=== PATIENT | male | born 1930 | race Caucasian/White ===

== ENCOUNTER → 2019-10-07 | Outpatient (CLI) | payer MEDICARE, BC ==
[2019-10-07 13:56] LABS: Basophils % (A) 1 %; Eosinophils # (A) 0.2 k/uL (0-0.7); Eosinophils % (A) 6 %; HCT 36.3 % (39.0-53.0); HGB 11.6 gm/dL (13.0-17.5); Lymphocytes # (A) 0.6 k/uL (1.0-4.8); Lymphocytes % (A) 16 %; MCH 28.5 pg (25.0-35.0); MCHC 31.9 g/dL (31.0-37.0); MCV 89.3 fL (80.0-100.0); Mean Platelet Volume 7.1; Monocytes # (A) 0.3 k/uL (0-1.0); Monocytes % (A) 6 %; Neutrophils # (A) 2.8 k/uL (1.3-7.7); Neutrophils % (A) 69 %; Platelet Count 144 k/uL (150-450); RBC 4.06 m/uL (4.30-5.90); RDW 14.2 % (11.5-15.5); WBC 4.1 k/uL (3.8-10.6)
[2019-10-07 14:01] LABS: Calcium 9.7 mg/dL (8.4-10.2); Potassium 4.7 mmol/L (3.5-5.1)
[2019-10-07 14:35] LABS: Appearance,Urine Turbid (Clear); Bilirubin,Urine Negative (Negative); Blood,Urine Large (Negative); Color,Urine Red; Glucose,Urine (UA) Negative (Negative); Ketones,Urine Negative (Negative); Leukocyte Esterase,Urine Moderate (Negative); Nitrite,Urine Negative (Negative); Protein,Urine 2+ (Negative); RBC,Urine >182 /hpf (0-5); Specific Gravity,Urine 1.017 (1.001-1.035); Urobilinogen,Urine <2.0 mg/dL (<2.0); WBC,Urine 161 /hpf (0-5)
--- NOTE | 2019-10-07 14:49 | XR ---
EXAMINATION TYPE: XR chest 2V DATE OF EXAM: 10/07/2019 COMPARISON: 09/22/2017 HISTORY: 88-year-old male presurgical evaluation, C67.9, Z01.818, R31.0, I10, R06.02 TECHNIQUE: AP and lateral views FINDINGS: Low lung volumes and cardiovascular markings. Heart size is accentuated from the low lung volumes, li joe upper limits of normal in size. Strandy bibasilar atelectasis. No consolidation or pleural effus ion. IMPRESSION: Hypoventilatory changes. No definite acute cardiopulmonary process.
== END | disposition home or self-care (01) ==
LOC: LABPAT 12:46
PROVIDERS: ATTEND Urology
DX: Z01.818 Encounter for other preprocedural examination (principal); R91.8 Other nonspecific abnormal finding of lung field; C67.9 Malignant neoplasm of bladder, unspecified; R31.0 Gross hematuria
CPT/HCPCS: 71046; 80048; 81001; 85025; 87086; 93005

== ENCOUNTER 2019-10-14 11:58 | Observation (INO) | payer MEDICARE, BC ==
[2019-10-06 15:45] VITALS: BMI 31.6
--- NOTE | 2019-10-07 18:21 | P.HPIHPCON ---
History of Present Illness Mr Obrien is 88 yo male with gross hematuria. He underwent a cystoscopy which showed a large bladder tumor involving the bladder and extending into the prostate. 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 I discussed the option of TURBT with him, I discussed with him the risk of bleeding, infection and bladder perforation. I also discussed risk from anesthesia with him. He understood all the risks and agreed to proceed with TURBT Consent for Procedure: I have explained the operation/procedure to the patient, including the risks, benefits, side effects, alternative therapies (including not receiving the proposed treatment or service), the likelihood of the patient achieving his/her goals, and potential recuperation problems for the procedure/sedation/analgesia, as well as any blood products, if indicated. I also explained to the patient the risks, benefits and side effects of the alternatives, as well as the risks related to not receiving the proposed procedure, care, treatment, or services. 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[place]), Prostate Disorder Last Myocardial Infarction Date:: 1974 History of Any Multi-Drug Resistant Organisms: None Reported Past Surgical History: Orthopedic Surgery Additional Past Surgical History / Comment(s): lt arm Past Anesthesia/Blood Transfusion Reactions: No Reported Reaction Smoking Status: Former smoker - Past Family History Mother Family Medical History: No Reported History Medications and Allergies Home Medications Medication Instructions Recorded Confirmed Type Aspirin [Adult Low Dose Aspirin EC] 81 mg PO DAILY 10/06/19 10/06/19 History Losartan/Hydrochlorothiazide 1 tab PO DAILY 10/06/19 10/06/19 History [Hyzaar 100-25 Tablet] Meloxicam 15 mg PO DAILY 10/06/19 10/06/19 History Simvastatin [Zocor] 40 mg PO DAILY 10/06/19 10/06/19 History Tamsulosin [Flomax] 0.4 mg PO DAILY 10/06/19 10/06/19 History Allergies Allergy/AdvReac Type Severity Reaction Status Date / Time No Known Allergies Allergy Verified 10/06/19 15:36 Surgical - Exam - General well developed, well nourished, no distress, no pain - Respiratory normal expansion, normal respiratory effort Assessment and Plan Assessment: 88 yo with large bladder tumor with possible prostate invasion -OR for TURBT possibile TURP
[~2019-10-14 11:58] MED LIST: HYDROmorphone 0.5 MG/0.5 ML SYRINGE IVP PRN; ONDANSETRON 4 MG/2 ML VIAL IVP ONE
[2019-10-14] MEDS: LACTATED RINGERS 1,000 ML IV SCH (12:28)
[2019-10-14] MEDS ORDERED: ONDANSETRON 4 MG/2 ML VIAL ONE (12:29)
[2019-10-14] MEDS ORDERED: fentaNYL (PF) 50 MCG/ML 2 ML AMP ONE (12:44)
[2019-10-14] MEDS ORDERED: ROCURONIUM BROMIDE 10 MG/ML 5 ML VIAL IV ONE (12:44)
[2019-10-14] MEDS ORDERED: PROPOFOL 10 MG/ML 20 ML VIAL IV ONE (12:44)
[2019-10-14] MEDS ORDERED: LIDOCAINE 1% INJ 10MG/ML (20 ML MDV) ONE (12:44)
[2019-10-14] MEDS ORDERED: IOPAMIDOL-370 50ML BTL MISCELLANE ONE (13:13)
[2019-10-14] MEDS ORDERED: LACTATED RINGERS 1,000 ML IV ONE ×3 (14:11→15:35)
[2019-10-14] MEDS ORDERED: IOPAMIDOL-300 50ML BTL MISCELLANE ONE ×2 (15:20)
--- NOTE | 2019-10-14 15:50 | FL ---
EXAMINATION TYPE: FL urography retrograde DATE OF EXAM: 10/14/2019 COMPARISON: NONE HISTORY: Bladder cancer. TECHNIQUE: Fluoroscopy. FINDINGS: Fluoroscopic guidance was provided during bladder resection procedure performed by Dr. Ed crocker. A total of 30 seconds of fluoroscopic time was utilized during the procedure and four spot intr aoperative images are acquired. Images acquired show access UVJ with opacification of the collecting system. There is subsequent contrast filling of the bladder. IMPRESSION: As Above.
[2019-10-14 17:34] LABS: Calcium 8.1 mg/dL (8.4-10.2); Potassium 5.4 mmol/L (3.5-5.1)
[2019-10-14] MEDS ORDERED: BELLADONNA-OPIUM 16.2-60 MG 1 EACH SUPP RECTAL PRN (17:38)
[2019-10-14 18:45] LABS: Basophils % (A) 0 %; Eosinophils # (A) 0.1 k/uL (0-0.7); Eosinophils % (A) 1 %; HCT 37.9 % (39.0-53.0); HGB 11.8 gm/dL (13.0-17.5); Hypochromasia Slight; Lymphocytes # (A) 0.6 k/uL (1.0-4.8); Lymphocytes % (A) 5 %; MCH 29.2 pg (25.0-35.0); MCHC 31.3 g/dL (31.0-37.0); MCV 93.6 fL (80.0-100.0); Mean Platelet Volume 7.1; Monocytes # (A) 0.5 k/uL (0-1.0); Monocytes % (A) 4 %; Neutrophils # (A) 11.7 k/uL (1.3-7.7); Neutrophils % (A) 90 %; Platelet Count 157 k/uL (150-450); RBC 4.05 m/uL (4.30-5.90); RDW 14.1 % (11.5-15.5)
[2019-10-14] MEDS: D5-0.45% NACL WITH KCL 20MEQ/L 1,000 ML IV SCH (18:45)
--- NOTE | 2019-10-14 18:53 | P.OP ---
Date of Procedure: 10/14/19 Preoperative Diagnosis: Bladder tumor Postoperative Diagnosis: Same Procedure(s) Performed: Cystoscopy, left retrograde pyelogram, TURBT (large), TURP, cystogram Implants: None Anesthesia: GAURAV Surgeon: Gab Townsend Estimated Blood Loss (ml): 300 Pathology: other (Bladder tumor) Condition: stable Disposition: PACU Indications for Procedure: Mr Obrien is 88 yo male with gross hematuria. He underwent a cystoscopy which showed a large bladder tumor involving the bladder and extending into the prostate. 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 I discussed the option of TURBT with him, I discussed with him the risk of bleedin g, infection and bladder perforation. I also discussed risk from anesthesia with him. 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 An additional tumor that measured greater than 8 cm involving the entire right lateral wall extending into the dome. Few satellite lesions along the posterior bladder wall. Description of Procedure: The patient was brought to the operating room general anesthesia was induced. Her persistent. Control fashion placed in a dorsal lithotomy position. Cystoscopy fitted with a 21 sheath was inserted per urethra. Cystoscopy was performed which showed an extensive hypervascular bladder tumor involving the bladder neck circumstantially and invading into the prostate base and extending it close proximity to the prostate apex, the tumor also extends into the anterior bladder wall and the right side of the trigone. An additional lesion was also seen along the right lateral wall and bladder dome. The total area of the second tumor was greater than 8 cm. few satellite lesions along the posterior bladder wall. Unable to visualize the right ureteral orifice. The left ureteral orifice was intubated with a 6-Colombian open-ended catheter retrograde pyelogram was performed which showed no filling defect or hydronephrosis on the left side. At this time attention was carried to the bladder tumor. The cystoscope was removed and a resectoscope fitted with a 25- Colombian sheath was inserted. The bladder tumor along the bladder neck and the prostate was resected down of note the tumor was hypervascular and with each resection there was significant bleeding which required cautery in order to maintain visualization. The tumor along the lateral wall and the posterior dome was also resected down to visible muscle fibers. specimen was Sent to pathology of note there was tumor along the dome/anterior wall I was not able to reach with the resectoscope. Additionally the patient tumor/Resection site along the anterior bladder neck/anterior bladder wall, was difficult to reach with the resectoscope in order to maintain hemostasis. At this time we switched to the button and the area was thoroughly fulgurated but there was still some venous bleeding but no arterial bleeding was appreciated multiple attempts was made to try to control the venous bleeding but I was not able to. At this time 22- Colombian hematuria Riley was inserted with return of light red urine. Once the Riley was placed on traction the urine was light pink. It was irrigated without difficulty. At this time the Riley balloon was filled with 80 mL and was placed on traction. The Riley irrigated without any issues with return of light pink urine. At this time the patient was awakened from anesthesia and was taken to recovery in stable condition. Of note proximally 80% of the tumor was resected, patient's all had residual tumor along the anterior bladder wall and the bladder dome. More than 4 hours were spent on the resection, I did discuss with the family the patient will need repeat resection
[2019-10-14] MEDS ORDERED: ACETAMINOPHEN TAB 500 MG TAB PO PRN (22:10)
[2019-10-14] MEDS: HYDROcodone/APAP 5-325MG 1 EACH TAB PO PRN (22:19)
[2019-10-15] MEDS: HYDROcodone/APAP 5-325MG 1 EACH TAB PO PRN ×4 (03:23→19:23)
[2019-10-15] MEDS: D5-0.45% NACL WITH KCL 20MEQ/L 1,000 ML IV SCH ×3 (03:24→18:54)
[2019-10-15 06:32] LABS: Calcium 8.4 mg/dL (8.4-10.2)
[2019-10-15 06:37] LABS: Basophils % (A) 0 %; Eosinophils # (A) 0.2 k/uL (0-0.7); Eosinophils % (A) 2 %; HCT 29.6 % (39.0-53.0); Lymphocytes # (A) 0.8 k/uL (1.0-4.8); Lymphocytes % (A) 10 %; MCH 29.1 pg (25.0-35.0); MCV 90.9 fL (80.0-100.0); Mean Platelet Volume 7.7; Monocytes # (A) 0.6 k/uL (0-1.0); Monocytes % (A) 7 %; Neutrophils # (A) 6.6 k/uL (1.3-7.7); Neutrophils % (A) 79 %; Platelet Count 162 k/uL (150-450); RBC 3.25 m/uL (4.30-5.90); RDW 14.4 % (11.5-15.5); WBC 8.3 k/uL (3.8-10.6)
[2019-10-15 06:51] LABS: HGB 9.5 gm/dL (13.0-17.5)
[2019-10-15] MEDS: TAMSULOSIN 0.4 MG CAP.ER.24H PO SCH (07:26)
[2019-10-15] MEDS: hydroCHLOROthiazide 25 MG TAB PO SCH (07:26)
[2019-10-15] MEDS: ATORVASTATIN 20 MG TAB PO SCH (07:26)
[2019-10-15] MEDS: LOSARTAN 50 MG TAB PO SCH (07:26)
[2019-10-15] MEDS: LACTATED RINGERS 1,000 ML IV SCH (07:38)
[2019-10-15] MEDS: HYDROmorphone 1 MG/ML 1 ML SYRINGE IVP PRN ×3 (10:27→21:51)
[2019-10-15 12:44] LABS: Basophils # (A) 0.1 k/uL (0-0.2); Basophils % (A) 1 %; Eosinophils # (A) 0.2 k/uL (0-0.7); Eosinophils % (A) 2 %; HCT 32.7 % (39.0-53.0); HGB 10.1 gm/dL (13.0-17.5); Hypochromasia Slight; Lymphocytes # (A) 0.8 k/uL (1.0-4.8); Lymphocytes % (A) 7 %; MCH 28.5 pg (25.0-35.0); MCHC 30.9 g/dL (31.0-37.0); MCV 92.1 fL (80.0-100.0); Mean Platelet Volume 7.4; Monocytes % (A) 8 %; Neutrophils # (A) 10.2 k/uL (1.3-7.7); Neutrophils % (A) 82 %; Platelet Count 173 k/uL (150-450); RBC 3.55 m/uL (4.30-5.90); RDW 14.5 % (11.5-15.5); WBC 12.4 k/uL (3.8-10.6)
[2019-10-16] MEDS: HYDROcodone/APAP 5-325MG 1 EACH TAB PO PRN ×2 (00:27→08:41)
[2019-10-16] MEDS: D5-0.45% NACL WITH KCL 20MEQ/L 1,000 ML IV SCH (02:56)
[2019-10-16] MEDS: HYDROmorphone 1 MG/ML 1 ML SYRINGE IVP PRN (05:18)
[2019-10-16] MEDS: ATORVASTATIN 20 MG TAB PO SCH (08:21)
[2019-10-16] MEDS: LOSARTAN 50 MG TAB PO SCH (08:22)
[2019-10-16] MEDS: TAMSULOSIN 0.4 MG CAP.ER.24H PO SCH (08:22)
[2019-10-16] MEDS: hydroCHLOROthiazide 25 MG TAB PO SCH (08:23)
[2019-10-16 09:46] VITALS: BP 153/67; PULSE 81; RESP 16; TEMP 98.2
--- NOTE | 2019-10-16 09:56 | P.DS ---
Providers Date of admission: 10/15/19 08:10 Expected date of discharge: 10/16/19 Attending physician: Gab Townsend MD Primary care physician: Sky Chua Hospital Course: On the day of admission, the patient underwent resection of a very large bladder tumor, which extended into the prostatic fossa. There was a lengthy resection, and it was difficult to attain adequate hemostasis. A Riley catheter was placed on traction, and the appearance of the urine was improved on the first postoperative day. By the second postoperative day, the urine was clear. The patient reported bladder cramps, but irrigation of the catheter confirmed that the catheter was properly positioned and patent, without clots. Procedures: Cystoscopy, left retrograde pyelogram, TURP, TURBT on 10/14/2019. Patient Condition at Discharge: Fair Plan - Discharge Summary Discharge Rx Participant: Yes New Discharge Prescriptions: New Tolterodine ER [Detrol LA] 4 mg PO DAILY #7 cap.er.24h No Action Tamsulosin [Flomax] 0.4 mg PO DAILY Simvastatin [Zocor] 40 mg PO DAILY Meloxicam 15 mg PO DAILY Aspirin [Adult Low Dose Aspirin EC] 81 mg PO DAILY Losartan/Hydrochlorothiazide [Hyzaar 100-25 Tablet] 1 tab PO DAILY Discharge Medication List Aspirin [Adult Low Dose Aspirin EC] 81 mg PO DAILY 10/06/19 [History] Losartan/Hydrochlorothiazide [Hyzaar 100-25 Tablet] 1 tab PO DAILY 10/06/19 [History] Meloxicam 15 mg PO DAILY 10/06/19 [History] Simvastatin [Zocor] 40 mg PO DAILY 10/06/19 [History] Tamsulosin [Flomax] 0.4 mg PO DAILY 10/06/19 [History] Tolterodine ER [Detrol LA] 4 mg PO DAILY #7 cap.er.24h 10/16/19 [Rx] Follow up Appointment(s)/Referral(s): Gab Townsend MD [STAFF PHYSICIAN] - 1 Week Activity/Diet/Wound Care/Special Instructions: Discharge home with Riley catheter. Drink plenty of fluids. Avoid strenuous activity. Hold aspirin. Discharge Disposition: HOME SELF-CARE
== END 2019-10-16 12:01 | disposition home or self-care (01) ==
LOC: OR 11:58 → 1SOBS 18:05 → OR 10-15 08:10 → 1SOBS 10-15 08:10
PROVIDERS: ADMIT Urology; ATTEND Urology
DX: C67.8 Malignant neoplasm of overlapping sites of bladder (principal); I10 Essential (primary) hypertension; E78.5 Hyperlipidemia, unspecified; Z79.1 Long term (current) use of non-steroidal anti-inflammatories (NSAID); Z79.82 Long term (current) use of aspirin; Z79.899 Other long term (current) drug therapy; Z87.891 Personal history of nicotine dependence; I25.2 Old myocardial infarction
CPT/HCPCS: 52240; 86900; 86901; 80048 ×2; 85025 ×2; 86850; 88307; 74420; G0378 ×2; C1758; J0690 ×4; J2405; J2001; J3010; J1170 ×2; J2704; Q9967 ×2

== ENCOUNTER 2019-10-20 11:31 | Emergency (ER) | payer MEDICARE, BC ==
[2019-10-20 11:46] VITALS: RESP 18; TEMP 97.7
[2019-10-20] MEDS ORDERED: ONDANSETRON 4 MG/2 ML VIAL IVP STA (12:15)
[2019-10-20] MEDS ORDERED: SODIUM CHLORIDE 0.9% 500 ML 500 ML IV STA (12:15)
[2019-10-20] MEDS ORDERED: MORPHINE SULFATE 2 MG/ML SYRINGE IVP ONE (12:15)
[2019-10-20 12:31] LABS: Basophils % (A) 0 %; Eosinophils # (A) 0.1 k/uL (0-0.7); Eosinophils % (A) 1 %; HCT 29.3 % (39.0-53.0); HGB 9.6 gm/dL (13.0-17.5); Lymphocytes # (A) 0.5 k/uL (1.0-4.8); Lymphocytes % (A) 6 %; MCH 29.3 pg (25.0-35.0); MCHC 32.7 g/dL (31.0-37.0); MCV 89.7 fL (80.0-100.0); Monocytes # (A) 0.5 k/uL (0-1.0); Monocytes % (A) 6 %; Neutrophils # (A) 7.5 k/uL (1.3-7.7); Neutrophils % (A) 85 %; Platelet Count 190 k/uL (150-450); RBC 3.26 m/uL (4.30-5.90); RDW 14.3 % (11.5-15.5); WBC 8.9 k/uL (3.8-10.6)
[2019-10-20 12:41] LABS: Albumin 3.8 g/dL (3.5-5.0); Calcium 9.4 mg/dL (8.4-10.2); Potassium 5.1 mmol/L (3.5-5.1); Total Bilirubin 0.4 mg/dL (0.2-1.3); Total Protein 6.1 g/dL (6.3-8.2)
[2019-10-20 12:52] LABS: Appearance,Urine Cloudy (Clear); Bilirubin,Urine Negative (Negative); Blood,Urine Large (Negative); Color,Urine Yellow; Glucose,Urine (UA) Negative (Negative); Ketones,Urine Negative (Negative); Leukocyte Esterase,Urine Large (Negative); Mucus,Urine Rare /hpf; Nitrite,Urine Negative (Negative); PH, Urine 5.5 (5.0-8.0); Protein,Urine 2+ (Negative); RBC,Urine >182 /hpf (0-5); Specific Gravity,Urine 1.016 (1.001-1.035); Squamous Epithelial Cell,Urine <1 /hpf (0-4); Urobilinogen,Urine <2.0 mg/dL (<2.0); WBC,Urine 55 /hpf (0-5)
--- NOTE | 2019-10-20 12:55 | ED ---
General Adult HPI - General Chief complaint: Extremity Problem,Nontraumatic Stated complaint: feet swelling, N/V/D Time Seen by Provider: 10/20/19 11:48 Source: patient, family Mode of arrival: ambulatory Limitations: no limitations - History of Present Illness Initial comments: Patient is an 88-year-old male presenting to the emergency Department with complaints of nausea and vomiting that started this morning. Patient had surgery with Dr. Townsend 5 days ago for bladder cancer. Patient has an indwelling Riley in place. Patient states that this morning he has been having some nausea and a few episodes of vomiting. He is having some discomfort was lower abdomen, no more than usual. He also thinks that his catheter might be leaking. Patient does have a follow-up with in 6 days, on October 25. Patient has not been able to eat or drink very much today. Patient also is complaining that he feels like he is having some increased swelling to his lower bilateral extremities. He states he has not been able to move around very much since his surgery. He denies any chest pains, shortness of breath, fever, chills. Denies any diarrhea. He has no further complaints at this time. - Related Data Home Medications Medication Instructions Recorded Confirmed Aspirin [Adult Low Dose Aspirin EC] 81 mg PO DAILY 10/06/19 10/14/19 Losartan/Hydrochlorothiazide 1 tab PO DAILY 10/06/19 10/14/19 [Hyzaar 100-25 Tablet] Meloxicam 15 mg PO DAILY 10/06/19 10/14/19 Simvastatin [Zocor] 40 mg PO DAILY 10/06/19 10/14/19 Tamsulosin [Flomax] 0.4 mg PO DAILY 10/06/19 10/14/19 Previous Rx's Medication Instructions Recorded Tolterodine ER [Detrol LA] 4 mg PO DAILY #7 cap.er.24h 10/16/19 Allergies Allergy/AdvReac Type Severity Reaction Status Date / Time No Known Allergies Allergy Verified 10/20/19 11:51 Review of Systems ROS Statement: Those systems with pertinent positive or pertinent negative responses have been documented in the HPI. ROS Other: All systems not noted in ROS Statement are negative. Past Medical History Past Medical History: Hyperlipidemia, Hypertension, Myocardial Infarction ([place]), Prostate Disorder Last Myocardial Infarction Date:: 1974 History of Any Multi-Drug Resistant Organisms: None Reported Past Surgical History: Orthopedic Surgery Additional Past Surgical History / Comment(s): lt arm Past Anesthesia/Blood Transfusion Reactions: No Reported Reaction Past Psychological History: No Psychological Hx Reported Smoking Status: Former smoker Past Alcohol Use History: None Reported Past Drug Use History: None Reported - Past Family History Mother Family Medical History: No Reported History General Exam - General Exam Comments Initial Comments: GENERAL: Patient is well-developed and well-nourished. Patient is nontoxic and in no acute distress. HEAD: Atraumatic, normocephalic. EYES: Pupils equal round and reactive to light, extraocular movements intact, sclera anicteric, conjunctiva are normal. Eyelids were unremarkable. ENT: TMs normal, nares patent, oropharynx clear without exudates. Moist mucous me mbranes. NECK: Normal range of motion, supple without lymphadenopathy or JVD. LUNGS: Unlabored respirations. Breath sounds clear to auscultation bilaterally and equal. No wheezes rales or rhonchi. HEART: Regular rate and rhythm without murmurs, rubs or gallops. ABDOMEN: Mild discomfort in the lower abdomen, no specific area of sharp pain. Soft, normoactive bowel sounds. No guarding, no rebound. No masses appreciated. : Deferred MUSCULOSKELETAL: Normal extremities with adequate strength and normal range of motion. No clubbing or cyanosis. Patient does have some mild bilateral lower leg edema, no pitting. NEUROLOGICAL: Patient is alert and oriented x 3. Motor and sensory are also intact. Cranial nerves II through XII grossly intact. Symmetrical smile. Normal speech, normal gait. PSYCH: Normal mood, normal affect. SKIN: Warm, Dry, normal turgor, no rashes or lesions noted. Limitations: no limitations Course Vital Signs 10/20/19 10/20/19 10/20/19 11:41 12:30 13:35 Temperature 97.7 F 97.7 F Pulse Rate 111 H 100 85 Respiratory 18 18 18 Rate Blood Pressure 160/83 163/88 O2 Sat by Pulse 97 96 98 Oximetry Medical Decision Making - Medical Decision Making Patient is an 88-year-old male here for nausea and vomiting, status post bladder surgery 5 days ago secondary to bladder cancer. Asians vital signs are stable, afebrile. Patient did have some mild lower abdominal tenderness, no areas of sharp pain. Patient's lab work reveals a stable hemoglobin, stable kidney function, lactic acid is normal at 1.3. Urine did reveal large amount of blood, 55 WBCs, no bacteria. He received a small amount of fluid and pain medicine in the ER. He said no additional nausea or vomiting. He states his pain has improved. I discussed with patient that we need to leave the indwelling catheter in place until his follow up with Dr. Townsend next week. I recommended ankle pumps, leg elevation for mild lower leg edema. He is stable for disch arge. I will send him home with additional Zofran as needed for nausea. Patient and patient's son is in agreement with this plan of care. Return parameters were discussed with them and they both verbalized understanding. Case discussed Dr. Padilla. - Lab Data Result diagrams: 10/20/19 12:18 10/20/19 12:18 Lab Results 10/20/19 10/20/19 10/20/19 Range/Units 12:18 12:18 12:18 WBC 8.9 (3.8-10.6) k/uL RBC 3.26 L (4.30-5.90) m/uL Hgb 9.6 L (13.0-17.5) gm/dL Hct 29.3 L (39.0-53.0) % MCV 89.7 (80.0-100.0) fL MCH 29.3 (25.0-35.0) pg MCHC 32.7 (31.0-37.0) g/dL RDW 14.3 (11.5-15.5) % Plt Count 190 (150-450) k/uL Neutrophils % 85 % Lymphocytes % 6 % Monocytes % 6 % Eosinophils % 1 % Basophils % 0 % Neutrophils # 7.5 (1.3-7.7) k/uL Lymphocytes # 0.5 L (1.0-4.8) k/uL Monocytes # 0.5 (0-1.0) k/uL Eosinophils # 0.1 (0-0.7) k/uL Basophils # 0.0 (0-0.2) k/uL Sodium 136 L (137-145) mmol/L Potassium 5.1 (3.5-5.1) mmol/L Chloride 105 (98-107) mmol/L Carbon Dioxide 24 (22-30) mmol/L Anion Gap 7 mmol/L BUN 27 H (9-20) mg/dL Creatinine 1.65 H (0.66-1.25) mg/dL Est GFR (CKD-EPI)AfAm 43 (>60 ml/min/1.73 sqM) Est GFR (CKD-EPI)NonAf 37 (>60 ml/min/1.73 sqM) Glucose 151 H (74-99) mg/dL Plasma Lactic Acid Pa (0.7-2.0) mmol/L Calcium 9.4 (8.4-10.2) mg/dL Total Bilirubin 0.4 (0.2-1.3) mg/dL AST 30 (17-59) U/L ALT 14 (4-49) U/L Alkaline Phosphatase 77 (38-126) U/L Total Protein 6.1 L (6.3-8.2) g/dL Albumin 3.8 (3.5-5.0) g/dL Urine Color Yellow Urine Appearance Cloudy (Clear) Urine pH 5.5 (5.0-8.0) Ur Specific Townsend 1.016 (1.001-1.035) Urine Protein 2+ H (Negative) Urine Glucose (UA) Negative (Negative) Urine Ketones Negative (Negative) Urine Blood Large H (Negative) Urine Nitrite Negative (Negative) Urine Bilirubin Negative (Negative) Urine Urobilinogen <2.0 (<2.0) mg/dL Ur Leukocyte Esterase Large H (Negative) Urine RBC >182 H (0-5) /hpf Urine WBC 55 H (0-5) /hpf Ur Squamous Epith Cells <1 (0-4) /hpf Urine Mucus Rare H (None) /hpf 10/20/19 Range/Units 12:18 WBC (3.8-10.6) k/uL RBC (4.30-5.90) m/uL Hgb (13.0-17.5) gm/dL Hct (39.0-53.0) % MCV (80.0-100.0) fL MCH (25.0-35.0) pg MCHC (31.0-37.0) g/dL RDW (11.5-15.5) % Plt Count (150-450) k/uL Neutrophils % % Lymphocytes % % Monocytes % % Eosinophils % % Basophils % % Neutrophils # (1.3-7.7) k/uL Lymphocytes # (1.0-4.8) k/uL Monocytes # (0-1.0) k/uL Eosinophils # (0-0.7) k/uL Basophils # (0-0.2) k/uL Sodium (137-145) mmol/L Potassium (3.5-5.1) mmol/L Chloride (98-107) mmol/L Carbon Dioxide (22-30) mmol/L Anion Gap mmol/L BUN (9-20) mg/dL Creatinine (0.66-1.25) mg/dL Est GFR (CKD-EPI)AfAm (>60 ml/min/1.73 sqM) Est GFR (CKD-EPI)NonAf (>60 ml/min/1.73 sqM) Glucose (74-99) mg/dL Plasma Lactic Acid Pa 1.3 (0.7-2.0) mmol/L Calcium (8.4-10.2) mg/dL Total Bilirubin (0.2-1.3) mg/dL AST (17-59) U/L ALT (4-49) U/L Alkaline Phosphatase (38-126) U/L Total Protein (6.3-8.2) g/dL Albumin (3.5-5.0) g/dL Urine Color Urine Appearance (Clear) Urine pH (5.0-8.0) Ur Specific Townsend (1.001-1.035) Urine Protein (Negative) Urine Glucose (UA) (Negative) Urine Ketones (Negative) Urine Blood (Negative) Urine Nitrite (Negative) Urine Bilirubin (Negative) Urine Urobilinogen (<2.0) mg/dL Ur Leukocyte Esterase (Negative) Urine RBC (0-5) /hpf Urine WBC (0-5) /hpf Ur Squamous Epith Cells (0-4) /hpf Urine Mucus (None) /hpf Disposition Clinical Impression: Nausea & vomiting, Bilateral lower extremity edema Disposition: HOME SELF-CARE Condition: Stable Instructions (If sedation given, give patient instructions): Acute Nausea and Vomiting (ED) Additional Instructions: Please return to the Emergency Department if symptoms worsen or any other concerns. Follow-up with Dr. Townsend next week as discussed. May use Zofran for additional nausea. Frequent walks throughout the day, ankle pumps, leg elevation for the swelling. Is patient prescribed a controlled substance at d/c from ED?: No Referrals: Sky Chua MD [Primary Care Provider] - 1-2 days Gab Townsend MD [STAFF PHYSICIAN] - 1-2 days
[2019-10-20 13:36] VITALS: BP 163/88; PULSE 85
[2019-10-20] MEDS ORDERED: ONDANSETRON 4 MG ODT STARTER PACK 2 TAB BTL PO STA (13:41)
== END 2019-10-20 13:45 | disposition home or self-care (01) ==
LOC: EC 11:31
DX: C67.9 Malignant neoplasm of bladder, unspecified (principal); R60.0 Localized edema; R11.2 Nausea with vomiting, unspecified; R10.819 Abdominal tenderness, unspecified site; I10 Essential (primary) hypertension; E78.5 Hyperlipidemia, unspecified; I25.2 Old myocardial infarction; Z79.1 Long term (current) use of non-steroidal anti-inflammatories (NSAID); Z79.899 Other long term (current) drug therapy; Z79.82 Long term (current) use of aspirin; Z96.0 Presence of urogenital implants; Z98.890 Other specified postprocedural states; Z87.891 Personal history of nicotine dependence
CPT/HCPCS: 36415; 80053; 83605; 85025; 81001; 87086; 99283; 96374; 96375; J2405; J2270; S0119